=== PATIENT | male | born 1955 | race Caucasian/White ===

== ENCOUNTER → 2016-09-26 | Outpatient (CLI) | payer MEDICARE ==
[~2016-09-26] MED LIST: ALDACTONE25 MG PO; AMOXICILLIN500 MG PO; AMOXIL500 MG PO; ASPIRIN DELAYE325 MG PO; ASPIRIN325 MG PO; AUGMENTIN 875 M1 TAB PO; AVPAK AZITHROM250 M1 PO; B-COMPLEX-501 CAP PO; BENICAR20 MG PO; BENICAR40 MG PO; BENICAR5 MG PO; CIPRODEX 0.3%-7.5 ML OT; CIPROFLOXACIN500 MG PO; CLARITIN10 MG PO; CRANBERRY1 CAP PO; DARVOCET N 1001 TAB PO; DELTASONE10 MG PO; FIORICET 325 MG1 TAB PO; HUMALOG100 U/ML SC; HYDR25T PO; HYDROCHLOROTH12.5 M1 PO; HYDROCHLOROTHIA25 MG PO; LASIX 40MG40 MG/4 ML IV; LASIX40 MG PO; LEVOFLOXACIN500 MG PO; MEDROL DOSEPAK4 MG PO; MOTRIN IB200 MG PO; MOTRIN800 MG PO; NEURONTIN600 MG PO; NORCO 325 MG-7.1 TAB PO; NORVASC5 MG PO; NOVOLIN R100 U/ML SC; NOVOLOG 70/30 M10 ML SC; NOVOLOG MIX 70/33 ML SC; OSCAL/D,OYSTER250 MG PO; PERCOCET 325 MG1 TA2 PO; PERCOCET 325 MG1 TA5 PO; PHENERGAN W/DM120 ML PO; POLYTRIM 1000010 ML OPH; PRAVACHOL40 MG PO; PREDNICOT10 MG PO; PROAIR HFA0.09 MG/AC INH; PYRIDIUM200 MG PO; ROBITUSSIN AC 110 ML PO; TAMIFLU 75MG CA75 MG PO; TORADOL IV; TRIGLIDE160 MG PO; VIBRAMYCIN100 MG PO; VICO10300 PO; VICO75300 PO; VITAMIN D50000 I1 PO; VITAMIN D50000 I3 PO; VOLTAREN 0.1%2.5 ML OPH; XANAX XR1 MG PO; XANAX0.5 MG PO; XANAX1 MG PO; ZANTAC150 MG PO; ZOFRAN4 MG PO; Zaroxolyn,Diul2.5 MG PO
== END | disposition home or self-care (01) ==
LOC: RAD 10:40
DX: M47.897 Other spondylosis, lumbosacral region (principal); M47.896 Other spondylosis, lumbar region; M25.78 Osteophyte, vertebrae; M48.06 Spinal stenosis, lumbar region; M48.07 Spinal stenosis, lumbosacral region

== ENCOUNTER → 2016-10-10 | Outpatient (CLI) | payer MEDICARE ==
[2016-10-10 06:36] LABS: HEMATOCRIT 37.5 % (42.0-52.0); HEMOGLOBIN 12.3 g/dl (14.0-18.0); MEAN CELL VOLUME 84.3 fl (80.0-94.0); MEAN CORPUSCULAR HGB 27.6 pg (27.0-31.0); MEAN CORPUSCULAR HGB CONC 32.8 g/dl (33.0-37.0); MEAN PLATELET VOLUME 12.4 fl (9.6-12.3); PLATELET COUNT AUTOMATED 366 10*3/uL (130-400); RED BLOOD COUNT 4.45 10*6/uL (4.50-5.90); RED CELL DISTRI WIDTH 15.8 % (0-14.5)
[2016-10-10 07:18] LABS: BASOPHIL # 0.2 10*3/uL (0-0.1); BASOPHILS 1 % (0-1); EOSINOPHILS 6 % (1-4); LYMPHOCYTE # 2.6 10*3/uL (1.3-4.4); MONOCYTE # 1.8 10*3/uL (0.1-1.0); NEUTROPHIL # 10.6 10*3/uL (2.3-7.9); NEUTROPHILS 66 % (47-73); TOTAL CELLS COUNTED 100 #CELLS
[2016-10-10 07:19] LABS: ACANTHOCYTES FEW; SCHISTOCYTES FEW; SPHEROCYTES FEW
[2016-10-10 07:20] LABS: PLATELET SUFFICIENCY NORMAL (NORMAL)
== END | disposition home or self-care (01) ==
LOC: LAB 05:52
PROVIDERS: Nurse Practitioner Gerontology
DX: D72.829 Elevated white blood cell count, unspecified (principal); R79.89 Other specified abnormal findings of blood chemistry

== ENCOUNTER 2016-11-27 13:14 | Emergency (ER) | payer MEDICARE ==
[~2016-11-27] VITALS: Wt 108.9 kg
[2016-11-27 14:08] LABS: HEMATOCRIT 27.9 % (42.0-52.0); HEMOGLOBIN 8.8 g/dl (14.0-18.0); MEAN CELL VOLUME 86.4 fl (80.0-94.0); MEAN CORPUSCULAR HGB 27.2 pg (27.0-31.0); MEAN CORPUSCULAR HGB CONC 31.5 g/dl (33.0-37.0); MEAN PLATELET VOLUME 12.3 fl (9.6-12.3); PLATELET COUNT AUTOMATED 298 10*3/uL (130-400); RED BLOOD COUNT 3.23 10*6/uL (4.50-5.90); WHITE BLOOD COUNT 21.2 10*3/uL (4.8-10.8)
[2016-11-27 14:23] LABS: ACT PARTIAL THROMBO TIME 33.8 SECONDS (20.8-31.5)
[2016-11-27 14:24] LABS: ALBUMIN 2.3 gm/dl (3.1-4.5); CREATININE 2.37 mg/dL (0.70-1.30); MAGNESIUM 2.2 mg/dL (1.5-2.1); POTASSIUM 5.1 mmol/L (3.5-5.1)
[2016-11-27 14:30] LABS: TOTAL CELLS COUNTED 100 #CELLS
[2016-11-27 14:31] LABS: BURR CELLS MODERATE; PLATELET SUFFICIENCY NORMAL (NORMAL); POLYCHROMASIA SLIGHT; SCHISTOCYTES FEW
[2016-11-27 15:38] VITALS: BP 101/53
== END 2016-11-27 16:26 | disposition short-term general hospital (02) ==
LOC: ED 13:14
PROVIDERS: Nurse Practitioner Family
DX: I21.4 Non-ST elevation (NSTEMI) myocardial infarction (principal); N17.9 Acute kidney failure, unspecified; I50.9 Heart failure, unspecified; F17.200 Nicotine dependence, unspecified, uncomplicated; Z91.012 Allergy to eggs

== ENCOUNTER 2016-12-07 09:45 | Emergency (ER) | payer MEDICARE ==
[~2016-12-07] VITALS: Ht 182.8 cm; Wt 113.4 kg
[2016-12-07 10:15] LABS: HEMATOCRIT 20.2 % (42.0-52.0); HEMOGLOBIN 6.4 g/dl (14.0-18.0); MEAN CELL VOLUME 87.4 fl (80.0-94.0); MEAN CORPUSCULAR HGB 27.7 pg (27.0-31.0); MEAN CORPUSCULAR HGB CONC 31.7 g/dl (33.0-37.0); MEAN PLATELET VOLUME 11.6 fl (9.6-12.3); NUCLEATED RED BLOOD CELL 0.1 10*3/uL (0.0-0.0); NUCLEATED RED BLOOD CELL 0.3 % (0.0-0.0); PLATELET COUNT AUTOMATED 364 10*3/uL (130-400); RED BLOOD COUNT 2.31 10*6/uL (4.50-5.90); RED CELL DISTRI WIDTH 14.1 % (0-14.5); WHITE BLOOD COUNT 22.1 10*3/uL (4.8-10.8)
[2016-12-07 10:24] LABS: ACT PARTIAL THROMBO TIME 24.5 SECONDS (20.8-31.5); INTERNATIONAL NORM RATIO 1.1 (2.0-3.5)
[2016-12-07 10:32] LABS: CREATININE 2.03 mg/dL (0.70-1.30); MAGNESIUM 2.1 mg/dL (1.5-2.1); POTASSIUM 4.7 mmol/L (3.5-5.1); TOTAL PROTEIN 5.2 gm/dL (6.4-8.2)
[2016-12-07 10:35] LABS: BASOPHILS 2 % (0-1); TOTAL CELLS COUNTED 100 #CELLS
[2016-12-07 10:36] LABS: PLATELET SUFFICIENCY NORMAL (NORMAL); POLYCHROMASIA SLIGHT
[2016-12-07 10:49] LABS: TROPONIN I 0.584 ng/ml (<0.045)
[2016-12-07 11:57] VITALS: BP 122/60
== END 2016-12-07 12:28 | disposition short-term general hospital (02) ==
LOC: ED 09:45
PROVIDERS: Nurse Practitioner Family
DX: K92.2 Gastrointestinal hemorrhage, unspecified (principal); D62 Acute posthemorrhagic anemia; Z91.012 Allergy to eggs; Z79.899 Other long term (current) drug therapy

== ENCOUNTER 2016-12-18 10:59 | Emergency (ER) | payer MEDICARE ==
[~2016-12-18] VITALS: Ht 177 cm; Wt 113.4 kg
[2016-12-18 11:22] LABS: HEMATOCRIT 27.9 % (42.0-52.0); HEMOGLOBIN 8.7 g/dl (14.0-18.0); MEAN CELL VOLUME 88.9 fl (80.0-94.0); MEAN CORPUSCULAR HGB 27.7 pg (27.0-31.0); MEAN CORPUSCULAR HGB CONC 31.2 g/dl (33.0-37.0); MEAN PLATELET VOLUME 11.7 fl (9.6-12.3); NUCLEATED RED BLOOD CELL 0.2 % (0.0-0.0); PLATELET COUNT AUTOMATED 458 10*3/uL (130-400); RED BLOOD COUNT 3.14 10*6/uL (4.50-5.90); RED CELL DISTRI WIDTH 16.1 % (0-14.5); WHITE BLOOD COUNT 15.6 10*3/uL (4.8-10.8)
[2016-12-18 11:39] LABS: ALBUMIN 2.4 gm/dl (3.1-4.5); CREATININE 1.57 mg/dL (0.70-1.30); MAGNESIUM 1.7 mg/dL (1.5-2.1); POTASSIUM 4.2 mmol/L (3.5-5.1); TOTAL PROTEIN 6.3 gm/dL (6.4-8.2)
[2016-12-18 11:42] LABS: POLYCHROMASIA SLIGHT; TOTAL CELLS COUNTED 100 #CELLS; TROPONIN I 0.217 ng/ml (<0.045)
[2016-12-18 11:43] LABS: ACANTHOCYTES FEW; HOWELL-JOLLY BODIES FEW; PLATELET SUFFICIENCY HIGH (NORMAL); SPHEROCYTES MODERATE
[2016-12-18 12:04] LABS: ACT PARTIAL THROMBO TIME 26.9 SECONDS (20.8-31.5)
[2016-12-18 17:45] VITALS: BP 128/69
== END 2016-12-18 20:15 | disposition short-term general hospital (02) ==
LOC: ED 10:59
PROVIDERS: Emergency Medicine
DX: I50.9 Heart failure, unspecified (principal); R79.89 Other specified abnormal findings of blood chemistry; R91.8 Other nonspecific abnormal finding of lung field; E11.9 Type 2 diabetes mellitus without complications; I25.2 Old myocardial infarction; F17.200 Nicotine dependence, unspecified, uncomplicated; Z91.012 Allergy to eggs; Z79.899 Other long term (current) drug therapy; Z79.4 Long term (current) use of insulin

== ENCOUNTER 2017-01-10 19:34 | Inpatient (IN) | payer MEDICARE ==
[~2017-01-10] VITALS: Ht 175.3 cm; Wt 118.2 kg
--- NOTE | ~2017-01-10 | PROC NOTE ---
[place], [place] PROCEDURE NOTE NAME: SERAFIN FABIAN UNIT #: [id number] ROOM: 428 DOCTOR: ELLE PORTILLO BIRTHDATE: [birth year] DOS: 01/12/2017 PRIMARY PHYSICIAN: Dr. Mendez RADIOLOGIST: Dr. Watts ROOM NUMBER: [id number]. HISTORY OF PRESENT ILLNESS: The patient is a 61-year-old male who presented to [facility] with shortness of breath. He reported 2 myocardial infarctions within the past month. Chest x-ray revealed small bilateral pleural effusions and bilateral lower lobe infiltrates. A repeat chest x-ray demonstrated worsening right lower lobe pneumonia. MBS order was placed given concern for aspiration as a cause. The patient is currently on a regular diet with thin liquids. PREVIOUS MEDICAL HISTORY: The patient's medical history includes acute respiratory failure, CHF, CKD, HTN, GERD, bipolar disorder, diabetes mellitus type 2, tobacco abuse, HLD, CAD, BPH and anxiety. He has previously unknown to this ENTRY LEVEL JAVA DEVELOPER service. GENERAL COMMENTS: The patient remained awake, alert and cooperative throughout the exam. He reported recent incident of waking up due to a burning sensation in his lungs, which led to emesis. He attributed the burning sensation to reflux. The patient currently takes reflux medications and is aware of general reflux precautions. He denied history of dysphagia and coughing/choking during p.o. ORAL MECHANISM EXAM: Symmetry, strength, coordination, range of motion and accuracy of movements of upper and lower face, lips, jaw and palate were within functional limits. Mild deviation of the tongue to the left noted upon protrusion. The patient is edentulous and does not wear dentures. Volitional cough was adequate for sharpness. MOTOR SPEECH EXAM: Conversational speech was classified by adequate respiration for sentence length utterances. Normal phonatory quality, resonance and prosody and precise articulation. Speech comprehension ability was 100% in a quiet environment. ORAL PHASE: Adequate bolus acceptance with no anterior loss. AP bolus transit was timely. Mastication was mildly prolonged, but complete. Piecemeal deglutition noted with solids. No appreciable oral residue. PHARYNGEAL PHASE: Initiation of the swallow response was generally timely, although early bolus entry into the pharynx noted with solids. HLE was adequate in both superior and anterior planes with subsequent complete epiglottic retroflexion. No penetration or aspiration was observed with any consistency. Base of tongue to posterior pharyngeal wall contact was adequate with no appreciable pharyngeal residue. [place], [place] PROCEDURE NOTE NAME: SERAFIN FABIAN UNIT #: [id number] ROOM: [facility] DOCTOR: ELLE PORTILLO BIRTHDATE: [birth year] UES: Unremarkable. IMPRESSION: The patient presents with normal oropharyngeal swallowing function. No aspiration or penetration was observed with any consistency. He remains appropriate for a regular diet with thin liquids. The patient's only aspiration risk factor is the diagnosis of gastroesophageal reflux disease. Adherence to precautions below is recommended to reduce this risk. RECOMMENDATIONS: 1. Continue current diet, regular food with thin liquids. 2. Standard aspiration precautions, fully upright, awake and alert for all p.o., small bites/sips, oral care at least b.i.d. 3. Reflux management. Findings and recommendations were reviewed with the patient who expressed understanding. PLAN OF CARE: No further ENTRY LEVEL JAVA DEVELOPER followup is indicated at this time. Please reconsult if additional concerns for aspiration/dysphagia arise. Thank you for consulting. Please contact the Speech Language Pathology Department at [phone] with any questions/concerns. Elle Guillermo CM:PROCNOTE:PROCEDURE NOTE [id number] ELLE PORTILLO
[2017-01-10 19:45] VITALS: BP 156/58
[2017-01-10 20:09] LABS: HEMATOCRIT 25.2 % (42.0-52.0); HEMOGLOBIN 7.9 g/dl (14.0-18.0); MEAN CELL VOLUME 87.5 fl (80.0-94.0); MEAN CORPUSCULAR HGB 27.4 pg (27.0-31.0); MEAN CORPUSCULAR HGB CONC 31.3 g/dl (33.0-37.0); MEAN PLATELET VOLUME 12.1 fl (9.6-12.3); NUCLEATED RED BLOOD CELL 0.1 10*3/uL (0.0-0.0); NUCLEATED RED BLOOD CELL 0.4 % (0.0-0.0); PLATELET COUNT AUTOMATED 448 10*3/uL (130-400); RED BLOOD COUNT 2.88 10*6/uL (4.50-5.90); RED CELL DISTRI WIDTH 16.2 % (0-14.5); WHITE BLOOD COUNT 15.6 10*3/uL (4.8-10.8)
[2017-01-10 20:20] LABS: ACT PARTIAL THROMBO TIME 25.6 SECONDS (20.8-31.5)
[2017-01-10 20:28] LABS: ALBUMIN 2.4 gm/dl (3.1-4.5); CREATININE 1.84 mg/dL (0.70-1.30); POTASSIUM 4.6 mmol/L (3.5-5.1); TOTAL PROTEIN 6.1 gm/dL (6.4-8.2)
[2017-01-10 20:30] LABS: PLATELET SUFFICIENCY HIGH (NORMAL); POLYCHROMASIA SLIGHT; TOTAL CELLS COUNTED 100 #CELLS
[2017-01-10 20:31] LABS: MICROCYTOSIS SLIGHT
[2017-01-10 20:34] LABS: BURR CELLS FEW
[2017-01-10 20:36] LABS: TROPONIN I 0.338 ng/ml (<0.045)
[2017-01-10 21:00] VITALS: BP 144/83
--- NOTE | 2017-01-10 21:09 | NUR ---
PATIENT RESTING IN FOWLERS POSITION C/O BACK PAIN WHICH PT STATES IS CHRONIC, ABD WITH NORMOACTIVE BOWEL SOUNDS, COLOSTOMY BAG CLEAN AND IN PLACE WITH GOOD SEAL, NO OTHER NOTED OPEN AREAS OR WOUNDS, PT REQUESTS TO LEAVE PANTS ON, DENIES ANY WOUNDS IN AREAS NOT VISABLE
[2017-01-10 21:33] VITALS: BP 135/70
[2017-01-10 21:50] VITALS: BP 145/68; BP 148/68
--- NOTE | 2017-01-10 21:55 | NUR ---
DR. MASON AT BEDSIDE AND AWARE OF POX 89% AND O2 INITIATED AT 2LPM VIA NC INCREASING POX TO 93% MEDICATION RECONCILIATION UPDATED WITH MEDICATION PILL BOTTLES FROM HOME. PATIENT STATES UNSURE OF HOME MEDS AND FOLLOW UP INDICATED TO UPDATE HOME MEDS WITH PATIENT'S PHARMACY TOMORROW. FEDE ARREOLA RN
[2017-01-10] MEDS ORDERED: IMDUR SA30 MG PO (22:14)
[2017-01-10] MEDS ORDERED: RANEXA500 M1 PO (22:15)
[2017-01-10] MEDS ORDERED: TAMSULOSIN HCL0.4 MG PO (22:15)
[2017-01-10] MEDS ORDERED: TRAZODONE50 MG PO (22:16)
[2017-01-10] MEDS ORDERED: NITROGLYCERIN0.4 MG SL (22:17)
[2017-01-10] MEDS ORDERED: BUMETANIDE1 MG PO (22:18)
[2017-01-10] MEDS ORDERED: ASPIRIN CHEWABL81 MG PO (22:18)
[2017-01-10] MEDS ORDERED: NEURONTIN600 MG PO (22:19)
[2017-01-10] MEDS ORDERED: EQ STOOL SOFTE1 EACH PO (22:19)
[2017-01-10] MEDS ORDERED: TOPROL XL50 M1 PO (22:20)
[2017-01-10] MEDS ORDERED: LIPITOR40 MG PO (22:20)
[2017-01-10] MEDS ORDERED: XANAX0.5 MG PO (22:21)
[2017-01-10] MEDS ORDERED: LANTUS SOL100 UNIT/1 SQ (22:23)
[2017-01-10] MEDS ORDERED: COLACE100 MG PO (22:28)
[2017-01-10] MEDS ORDERED: IRON325 M1 PO (22:29)
--- NOTE | 2017-01-10 23:54 | NUR ---
PRN NORCO GIVEN PER PT. REQUEST FOR LOWER BACK AND NECK PAIN RATING PAIN A 10/19. WILL MONITOR EFFECT.
[2017-01-11] VITALS: BP 130/63
--- NOTE | 2017-01-11 00:20 | NUR ---
PRN NORCO SEEMS TO BE EFFECTIVE. PT. NOT VERBALIZING ANY C/O PAIN AT THIS TIME. RESPIRATIONS ARE EASY AND REGULAR WITH NASAL CANNULA ATTACHED AND DELIVERING 2LPM. WILL CONTINUE TO MONITOR PT.
--- NOTE | 2017-01-11 00:39 | NUR ---
SPOKE WITH DR. MASON IN REGARDS TO CRITICAL TROPONIN LEVEL OF 0.290, NO NEW ORDERS.
[2017-01-11 03:08] LABS: HEMATOCRIT 26.4 % (42.0-52.0); HEMOGLOBIN 8.2 g/dl (14.0-18.0); MEAN CELL VOLUME 88.3 fl (80.0-94.0); MEAN CORPUSCULAR HGB 27.4 pg (27.0-31.0); MEAN CORPUSCULAR HGB CONC 31.1 g/dl (33.0-37.0); MEAN PLATELET VOLUME 12.1 fl (9.6-12.3); NUCLEATED RED BLOOD CELL 0.1 10*3/uL (0.0-0.0); NUCLEATED RED BLOOD CELL 0.4 % (0.0-0.0); PLATELET COUNT AUTOMATED 443 10*3/uL (130-400); RED BLOOD COUNT 2.99 10*6/uL (4.50-5.90); RED CELL DISTRI WIDTH 16.2 % (0-14.5); WHITE BLOOD COUNT 18.2 10*3/uL (4.8-10.8)
[2017-01-11 03:19] LABS: CREATININE 1.54 mg/dL (0.70-1.30); POTASSIUM 4.7 mmol/L (3.5-5.1)
[2017-01-11 03:24] LABS: PHOSPHOROUS 2.8 mg/dL (2.5-4.9)
[2017-01-11 03:30] LABS: THYROID STIM HORMONE (HS) 1.32 uIU/ml (0.358-4.75)
--- NOTE | 2017-01-11 03:30 | NUR ---
DR. MASON INFORMED OF CRITICAL TROPONIN LEVEL OF 0.286.
[2017-01-11 03:32] LABS: ATYPICAL LYMPHS 1 % (0-0); BASOPHILS 2 % (0-1); PLATELET SUFFICIENCY HIGH (NORMAL); TOTAL CELLS COUNTED 100 #CELLS
[2017-01-11 03:33] LABS: POLYCHROMASIA SLIGHT
--- NOTE | 2017-01-11 06:19 | NUR ---
PRN NORCO GIVEN PER PT. REQUEST FOR C/O LOWER BACK AND NECK PAIN. PT. RATES PAIN A 09/18. WILL MONITOR EFFECT.
--- NOTE | 2017-01-11 06:43 | NUR ---
IV IN PT. RT HAND INFILTRATED. 22G IN PT.'S LT. HAND.
--- NOTE | 2017-01-11 06:46 | NUR ---
DR. CONTRERAS SERVICE CONTACTED FOR DR. CASTILLO, AWAITING CALL BACK.
--- NOTE | 2017-01-11 07:00 | NUR ---
DR. PRICE CALLED BACK IN REGARDS TO JONATHAN CONSULT, HE STATED THAT DR. CASTILLO WOULD BE IN TO SEE PT. TODAY, NO NEW ORDERS.
[2017-01-11 07:16] LABS: VITAMIN D, 25-HYDROXY 19.9 ng/mL (30-100)
[2017-01-11 08:00] VITALS: BP 150/76
--- NOTE | 2017-01-11 09:40 | NUR ---
ECHO BEING DONE AT THIS TIME.
--- NOTE | 2017-01-11 10:00 | NUR ---
Donor Processor in to talk to patient. Patient states lives at home with . There are few steps in the home. Physician: shelia gaspar Pharmacy: [facility] Home health services: none Patient's level of ADLs: INDEPENDENT Patient has working utilities: all working DME: none Follow-up physician's appointment after d/c: will be made by hospitalist nurse director upon discharge Does patient want to access PORTAL?: no Discharge plan discussed with patient, patient lives at home and states he will be returning home when able, denies any home needs. KEKE WASHBURN
--- NOTE | 2017-01-11 11:14 | NUR ---
CARENSERAFIN Vasquez [id number] Please refer to the physician's history and physical for past medical history, comorbid conditions, and allergies. Diagnosis: CHF EXACERBATION SHORTNESS OF BREATH ANEMIA Meliton Score: 21,LOW OR NO RISK WOUND DESCRIPTIONS: Location of the wound: middle abdomen Type of wound: surgical Thickness: Partial Size: 0.5cm x 0.3cm x 0.1cm Tunneling: none Undermining: none Sinus Tract: none Presence of Exudate: none Amount: None Color: Red Odor: None Periwound Skin Appearance: Normal Wound edges: approximated Pain (associated with wound): none at time of assessment How does patient state this happened? pt stated had surgery in 2003 and it the area drains about 1 a year and doesnt want to follow up with anyone because his surgeon stated that there is nothing that they can do to close the wounds and fistulas. 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 pt stated had surgery in 2003 and it the area drains about 1 a year and doesnt want to follow up with anyone because his surgeon stated that there is nothing that they can do to close the wounds and fistulas. Surface the patient is resting on: Isoflex SKIN PREVENTION RECOMMENDATION: 1. Pressure redistribution support surface as appropriate 2. Elevate heels 3. Remove boots/TEDS every shift and reapply 4. Head of bed 30 degrees as tolerated 5. Assess nutrition and hydration 6. Manage moisture 7. Avoid the use of containment devices while in bed 8. Use absorptive products on surfaces limit layers of linens on bed 9. Turn and reposition every 1-2 hours in bed and every 1 hour in chair as tolerated 10. Weight shifts every 15 minutes while up in chair 11. Offloading with pillows or device to keep heels elevated off bed 12. Monitor skin at least every shift 13. Inspect under medical devices twice a day WOUND TREATMENT RECOMMENDATIONS: Patient wants area left open to air and doesnt want to follow up with anyone. He stated he has been dealing with this since 2003.
[2017-01-11 12:00] VITALS: BP 133/72
--- NOTE | 2017-01-11 12:09 | NUR ---
PT SITTING UP AT BEDSIDE, DENIES ANY SOB AT THIS TIME, O2 ON BED, STATES HE DOESN'T FEEL SOB OR THAT HE NEEDS IT. EXPLAINED TO PT IF HE BECOMES SOB TO RESUME WEARING THE OXYGEN, PT VERBALIZED UNDERSTANDING. DENIES ANY COMPLAINTS AT THIS TIME. ENCOURAGED PT TO SIT UP IN RECLINER TO ELEVATE LEGS TO HELP DECREASE SWELLING, STATES HE MIGHT GET IN CHAIR LATER.
--- NOTE | 2017-01-11 14:36 | NUR ---
MEDICATED WITH NORCO PER PRN ORDER FOR COMPLAINTS OF LOWER BACK PAIN, RATE PAIN 09/18. WILL MONITOR FOR EFFECTIVENESS.
[2017-01-11 16:00] VITALS: BP 108/54
[2017-01-11 20:00] VITALS: BP 115/69
[2017-01-12] VITALS: BP 110/53
[2017-01-12 05:45] LABS: CREATININE 1.6 mg/dL (0.70-1.30); PHOSPHOROUS 3.3 mg/dL (2.5-4.9); POTASSIUM 4.4 mmol/L (3.5-5.1)
[2017-01-12 06:19] LABS: BASO % 0.2 % (0.0-1.0); HEMATOCRIT 26.8 % (42.0-52.0); HEMOGLOBIN 8.3 g/dl (14.0-18.0); LYMPH # 1.4 10*3/uL (1.3-4.4); LYMPH % 9.2 % (27.0-41.0); MEAN CELL VOLUME 87.6 fl (80.0-94.0); MEAN CORPUSCULAR HGB 27.1 pg (27.0-31.0); MEAN PLATELET VOLUME 12.6 fl (9.6-12.3); MONO # 0.1 10*3/uL (0.1-1.0); MONO % 0.6 % (3.0-9.0); NEUT # 13.3 10*3/uL (2.3-7.9); NEUT % 89.2 % (47.0-73.0); NUCLEATED RED BLOOD CELL 0.3 % (0.0-0.0); PLATELET COUNT AUTOMATED 455 10*3/uL (130-400); RED BLOOD COUNT 3.06 10*6/uL (4.50-5.90); RED CELL DISTRI WIDTH 16.2 % (0-14.5); WHITE BLOOD COUNT 14.9 10*3/uL (4.8-10.8)
--- NOTE | 2017-01-12 08:56 | NUR ---
PT STATING THAT HE IS GOING TO HAVE TO LEAVE THE HOSPITAL TODAY BECAUSE OF APPOINTMENTS THAT HE CAN NOT MISS. I EXPLAINED THE IMPORTANCE OF STAYING TO HAVE COMPLETE TREATMENT BUT PT STATES HE HAS ALREADY MISSED THESE APPOINTMENTS TWICE AND HE CAN NOT MISS THEM AGAIN. PT STATES THAT HE MADE THE DR'S AWARE OF THIS YESTERDAY. HE IS AGREEABLE TO HAVE ANY TESTS AND TREATMENTS DONE UNTIL HIS RIDE GETS HER LATER THIS MORNING.
--- NOTE | 2017-01-12 09:23 | NUR ---
case management visits with patient, patient states he will be going home when able and denies any home needs
--- NOTE | 2017-01-12 09:53 | NUR ---
SPEECH PATHOLOGY CONSULT RECEIVED AND APPRECIATED TO INSTRUMENTALLY EVALUATE MR. FABIAN'S OROPHARYNGEAL SWALLOWING FUNCTION. PT PRESENTS WITH CHF EXACERBATION AND HCAP C/B B/L LOWER LOBE INFILTRATES. PT REPORTED RECENT EPISODE OF POSSIBLE ASPIRATION OF REFLUX WHILE SLEEPING AND SUBSEQUENT EMESIS. HE DENIED ANY INSTANCES OF COUGHING/CHOKING DURING PO. PLEASE REFER TO DICTATED MBS REPORT FOR FULL DETAILS. IN BRIEF, MR. FABIAN TRIALED THE FOLLOWING BARIUM-IMPREGNATED CONSISTENCIES: THIN LIQUIDS VIA CUP, TSPS OF PUREE, AND BITE OF COARSE SOLIDS. MASTICATION OF COARSE SOLIDS WAS MILDLY PROLONGED BUT COMPLETE. MILD-MODERATE ORAL RESIDUE NOTED BUT CLEARED WITH ADDITIONAL SWALLOWS. NO PENETRATION OR ASPIRATION WAS OBSERVED WITH ANY CONSISTENCY. IMPRESSIONS: MR. FABIAN PRESENTS WITH NORMAL OROHPHARYNGEAL SWALLOWING FUNCTION. HE REMAINS APPROPRIATE FOR A REGULAR DIET WITH THIN LIQUIDS. PLEASE REFER TO THE DICTATED [facility] [place]PORT FOR FULL DETAILS. MR. VILLAVICENCIO'S ONLY ASPIRATION RISK FACTOR IS HIS DX OF GERD; RECOMMEND ADHERENCE TO PRECAUTIONS BELOW TO REDUCE THIS RISK. RECOMMENDATIONS: 1. CONTINUE CURRENT DIET, REGULAR FOODS WITH THIN LIQUIDS 2. STANDARD ASPIRATION PRECAUTIONS: FULLY, UPRIGHT, AWAKE, AND ALERT FOR ALL PO; SMALL BITES/SIPS; ORAL CARE AT LEAST BID 3. REFLUX MANAGEMENT POC: NO FURTHER EXECUTIVE RECEPTIONIST F/U IS INDICATED AT THIS TIME. PLEASE RE-CONSULT IF ADDITIONAL CONCERNS FOR DYSPHAGIA/ASPIRATION ARISE. THANK YOU FOR CONSULTING. TATE ANDRES-EXECUTIVE RECEPTIONIST
--- NOTE | 2017-01-12 10:00 | NUR ---
DR MANSFIELD MADE AWARE OF PT LEAVING AM. PT STATED HE IS GOING TO CALL HIS FAMILY TODAY SO THAT HE CAN GET THE PRESCRIPTIONS THAT HE NEEDS FOR PNEUMONIA.
--- NOTE | 2017-01-12 10:01 | NUR ---
Patient signed out AMA. Patient encouraged to stay and advised of possible consequences of premature discharge. Physician DR MANSFIELD and supervisor roller shop EDIN STEIN notified. Patient instructed what to do regarding care post-departure from the hospital; emergency phone numbers provided. Patent was accompanied by FRIEND. CHRISTEL CAMPOS
--- NOTE | 2017-01-12 10:02 | NUR ---
PT DID NOT WANT ANY PICS TAKEN OR WOUND MEASUREMENTS DONE BEFORE LEAVING AMA.
--- NOTE | 2017-01-12 10:35 | NUR ---
PT LEFT AMA WITH NEPHEW.
[2017-01-13 15:06] LABS: LEGIONELLA URINARY ANTIGEN Negative (Negative)
== END 2017-01-12 10:35 | disposition left against medical advice (07) | DRG 871 ==
LOC: ED 19:34 → 4E 21:02
PROVIDERS: Internal Medicine; Physician Assistant; ADMIT Internal Medicine
PROC: BD1BYZZ Fluoroscopy of Mouth/Oropharynx using Other Contrast (ICD-10-PCS; principal; 2017-01-12)
DX: A41.9 Sepsis, unspecified organism (principal); J18.9 Pneumonia, unspecified organism; J96.01 Acute respiratory failure with hypoxia; E43 Unspecified severe protein-calorie malnutrition; E11.42 Type 2 diabetes mellitus with diabetic polyneuropathy; E11.22 Type 2 diabetes mellitus with diabetic chronic kidney disease; I13.0 Hypertensive heart and chronic kidney disease with heart failure and stage 1 through stage 4 chronic kidney disease, or unspecified chronic kidney disease; F31.30 Bipolar disorder, current episode depressed, mild or moderate severity, unspecified; I50.9 Heart failure, unspecified; K21.9 Gastro-esophageal reflux disease without esophagitis; N18.3 Chronic kidney disease, stage 3 (moderate); F41.9 Anxiety disorder, unspecified; Y95 Nosocomial condition; Z53.21 Procedure and treatment not carried out due to patient leaving prior to being seen by health care provider; I25.10 Atherosclerotic heart disease of native coronary artery without angina pectoris; E78.5 Hyperlipidemia, unspecified; E55.9 Vitamin D deficiency, unspecified; E61.1 Iron deficiency; N40.0 Benign prostatic hyperplasia without lower urinary tract symptoms; D47.3 Essential (hemorrhagic) thrombocythemia; E11.65 Type 2 diabetes mellitus with hyperglycemia; Z91.012 Allergy to eggs; Z82.49 Family history of ischemic heart disease and other diseases of the circulatory system; Z72.0 Tobacco use; Z79.4 Long term (current) use of insulin; Z83.3 Family history of diabetes mellitus; Z82.3 Family history of stroke; Z79.82 Long term (current) use of aspirin; Z68.36 Body mass index [BMI] 36.0-36.9, adult; I25.2 Old myocardial infarction; Z79.899 Other long term (current) drug therapy

== ENCOUNTER 2017-01-28 23:05 | Inpatient (IN) | payer MEDICARE ==
[~2017-01-28] VITALS: Ht 175.2 cm; Wt 117.9 kg
--- NOTE | ~2017-01-28 | CON ---
[place], [place] REPORT OF CONSULTATION NAME: SERAFIN FABIAN UNIT #: [id number] ROOM: [facility] DOCTOR: BRENDA SCHWARZ MD,TIESHA BIRTHDATE: [birth year] DOS: 01/29/2017 SHORT NOTE CONSULTATION The patient has been asked for consultation to be seen, but discharged prior to my assessment. TIESHA GUTIERREZ MD CM:CONSTR:REPORT OF CONSULTATION 0928 01/30/17 1003 interface
[~2017-01-28 23:05] MED LIST changes: +ASPIRIN CHEWABL81 MG PO; +BUMETANIDE1 MG PO; +COLACE100 MG PO; +EQ STOOL SOFTE1 EACH PO; +IMDUR SA30 MG PO; +IRON325 M1 PO; +LANTUS SOL100 UNIT/1 SQ; +LIPITOR40 MG PO; +NITROGLYCERIN0.4 MG SL; +RANEXA500 M1 PO; +TAMSULOSIN HCL0.4 MG PO; +TOPROL XL50 M1 PO; +TRAZODONE50 MG PO
[2017-01-28 23:23] VITALS: BP 109/81
[2017-01-29 00:09] LABS: HEMATOCRIT 27.9 % (42.0-52.0); HEMOGLOBIN 8.9 g/dl (14.0-18.0); MEAN CELL VOLUME 85.6 fl (80.0-94.0); MEAN CORPUSCULAR HGB 27.3 pg (27.0-31.0); MEAN CORPUSCULAR HGB CONC 31.9 g/dl (33.0-37.0); MEAN PLATELET VOLUME 11.9 fl (9.6-12.3); NUCLEATED RED BLOOD CELL 0.1 % (0.0-0.0); PLATELET COUNT AUTOMATED 295 10*3/uL (130-400); RED BLOOD COUNT 3.26 10*6/uL (4.50-5.90); RED CELL DISTRI WIDTH 16.1 % (0-14.5)
[2017-01-29 00:12] LABS: BILIRUBIN NEGATIVE (NEGATIVE); BLOOD NEGATIVE (NEGATIVE); CLARITY CLEAR (CLEAR); COLOR YELLOW (YELLOW); GLUCOSE 3+ (NEGATIVE); KETONE NEGATIVE (NEGATIVE); LEUKO ESTERASE NEGATIVE (NEGATIVE); NITRITE NEGATIVE (NEGATIVE); SPECIFIC GRAVITY 1.015 (1.005-1.030); UROBILINOGEN 0.2 E.U./dl (0.2-1.0)
[2017-01-29 00:19] LABS: BACTERIA 2+
[2017-01-29 00:25] LABS: ALBUMIN 2.3 gm/dl (3.1-4.5); CREATININE 2.02 mg/dL (0.70-1.30); POTASSIUM 4.3 mmol/L (3.5-5.1); TOTAL PROTEIN 6.1 gm/dL (6.4-8.2)
[2017-01-29 00:30] LABS: BURR CELLS FEW; PLATELET SUFFICIENCY NORMAL (NORMAL); TOTAL CELLS COUNTED 100 #CELLS
[2017-01-29 00:31] LABS: POLYCHROMASIA SLIGHT; SCHISTOCYTES FEW; TARGET CELLS FEW
--- NOTE | 2017-01-29 00:33 | NUR ---
LAB CALLED WITH CRITICAL VALUE OF TROPONIN 0.071 AND GLUCOSE 512. NOTIFIED.
[2017-01-29 00:34] LABS: TROPONIN I 0.071 ng/ml (<0.045)
[2017-01-29 01:42] VITALS: BP 140/73
--- NOTE | 2017-01-29 01:58 | NUR ---
A 61, admitted to 5E, under the services of RADHA Curtis DO with a diagnosis of SHORTNESS OF BREATH. Chief complaint is NONPRODUCTIVE COUGH AND SOB 2-3X DAYS. Patient arrived via stretcher from ER. Monitor applied. Initial assessment completed. Vital signs taken and recorded. RADHA CURTIS DO notified of admission to the unit. Orders received. See assessment for past medical history, medications and allergies. Patient and/or family oriented to unit. [facility] visitation policy reviewed. Clothing/patient valuable form completed. DONNA STRICKLAND
--- NOTE | 2017-01-29 02:10 | NUR ---
MED REC REVIEWED WITH PATIENT. ADJUSTED PER PATIENT RECALL, BUT PATIENT UNABLE TO PROVIDE FULL LIST OF MEDICATIONS WITH APPROPRIATE DOSAGES/FREQUENCIES. MED REC WILL NEED TO BE UPDATED TOMORROW MORNING WITH [facility].
--- NOTE | 2017-01-29 02:30 | NUR ---
PHOTOS TAKEN OF 2 ABDOMINAL WOUNDS AT THIS TIME PER POLICY. SHIFT DIRECTOR NOTIFIED.
--- NOTE | 2017-01-29 02:33 | NUR ---
SPOKE TO AT THIS TIME REGARDING ADMISSION ORDERS. NOTIFIED THAT PT IS C/O PAIN IN ABDOMEN/BACK AND HE IS REQUESTING PAIN MEDICATION. ALSO NOTIFIED THAT PATIENT IS A DIABETIC, IS REQUESTING A NICOTROL INHALER, AND HAS TWO NON-HEALING SURGICAL WOUNDS TO ABDOMEN. STATES HE WILL PUT IN NEW ORDERS.
--- NOTE | 2017-01-29 03:33 | NUR ---
PATIENT MEDICATED WITH PO NORCO PER PRN ORDER FOR C/O ABDOMINAL PAIN AND CHRONIC BACK PAIN WHICH HE IS RATING 10/10. WILL MONITOR EFFECTIVENESS. COLOSTOMY BAG ALSO EMPTIED AT THIS TIME. URINAL PROVIDED FOR URINATION. WILL MONITOR PATIENT. CALL LIGHT LEFT IN REACH.
--- NOTE | 2017-01-29 04:42 | NUR ---
EARLIER MEDICATION APPEARS EFFECTIVE. PATIENT ASLEEP IN BED, RESPIRATIONS EASY, NO S/S OF DISTRESS NOTED. ON ROOM AIR. WILL MONITOR. CALL LIGHT LEFT IN REACH.
[2017-01-29 05:56] LABS: CREATININE 1.89 mg/dL (0.70-1.30); POTASSIUM 4.5 mmol/L (3.5-5.1)
[2017-01-29 06:05] LABS: THYROID STIM HORMONE (HS) 0.9 uIU/ml (0.358-4.75)
[2017-01-29 06:22] LABS: HEMATOCRIT 29.4 % (42.0-52.0); MEAN CELL VOLUME 86.2 fl (80.0-94.0); MEAN CORPUSCULAR HGB 26.4 pg (27.0-31.0); MEAN CORPUSCULAR HGB CONC 30.6 g/dl (33.0-37.0); MEAN PLATELET VOLUME 13.7 fl (9.6-12.3); NUCLEATED RED BLOOD CELL 0.1 % (0.0-0.0); PLATELET COUNT AUTOMATED 308 10*3/uL (130-400); RED BLOOD COUNT 3.41 10*6/uL (4.50-5.90); RED CELL DISTRI WIDTH 16.2 % (0-14.5); WHITE BLOOD COUNT 17.8 10*3/uL (4.8-10.8)
--- NOTE | 2017-01-29 06:29 | NUR ---
NOTIFIED OF CRITICAL GLUCOSE 496. 14 UNITS ADMINISTERED PER SLIDING SCALE ORDER. NO OTHER ORDERS RECEIVED AT THIS TIME.
[2017-01-29 06:42] LABS: ACT PARTIAL THROMBO TIME 27.6 SECONDS (20.8-31.5)
[2017-01-29 07:17] LABS: TOTAL CELLS COUNTED 100 #CELLS
[2017-01-29 07:18] LABS: ACANTHOCYTES FEW; BURR CELLS FEW; POLYCHROMASIA SLIGHT; TARGET CELLS FEW
[2017-01-29 07:19] LABS: PLATELET SUFFICIENCY NORMAL (NORMAL); SCHISTOCYTES MODERATE; SPHEROCYTES FEW
[2017-01-29 08:00] VITALS: BP 137/72
--- NOTE | 2017-01-29 08:30 | NUR ---
PT SITTING UP AT SIDE OF BED. RESP-EASY AND REGULAR. C/O LOWER BACK PAIN, RATES PAIN 10 ON PAIN SCALE. MEDICATED WITH NORCO PO PER PRN ORDER, SEE EMAR. CALL LIGHT IN REACH. SEE SHIFT ASSESSMENT.
[2017-01-29 08:51] LABS: VITAMIN D, 25-HYDROXY 22.2 ng/mL (30-100)
--- NOTE | 2017-01-29 10:11 | NUR ---
GORDO FOWLER AWARE MEDS ARE UPDATED.
[2017-01-29] MEDS ORDERED: NEURONTIN600 MG PO (11:10)
[2017-01-29 12:00] VITALS: BP 123/48
--- NOTE | 2017-01-29 12:10 | NUR ---
PT REFLUX-598 PER GORDO GIVE 20UNITS. SEE EMAR. CALL LIGHT IN REACH.
--- NOTE | 2017-01-29 12:29 | NUR ---
PT RESTING IN BED. MEDICATED WITH INSULIN PER ORDER, SEE EMAR. FOR REFLUX SUGAR OF 598. C/O BACK AND ABDOMINAL PAIN, RATES PAIN 11 ON PAIN SCALE 0-10 PER PT. CALL LIGHT IN REACH.
--- NOTE | 2017-01-29 14:21 | NUR ---
PT SITTING UP AT SIDE OF BED. C/O ABDOMINAL AND BACK PAIN, RATES PAIN 10 ON PAIN SCALE 0-10. MEDICATED WITH PERCOCET PO PER PRN ORDER, SEE EMAR. CALL LIGHT IN REACH.
--- NOTE | 2017-01-29 14:37 | NUR ---
CALLED DR. GUTIERREZ AWARE OF CONSULT.
--- NOTE | 2017-01-29 14:37 | NUR ---
CALLED GORDO FOWLER AWARE OF CRITICAL LACTIC ACID
--- NOTE | 2017-01-29 14:47 | NUR ---
PT SITTING UP AT SIDE OF BED. STATES PAIN MEDICATION IS HELPING. RATES PAIN 8 ON PAIN SCALE AT THIS TIME. CALL LIGHT IN REACH.
--- NOTE | 2017-01-29 14:53 | NUR ---
CALLED MADE GORDO FOWLER AWARE OF CRITICAL TROPONIN.
[2017-01-29 16:00] VITALS: BP 135/69
--- NOTE | 2017-01-29 16:00 | NUR ---
RESTING IN BED. NO C/O AT THIS TIME. CALL LIGHT IN REACH. SEE SHIFT ASSESSMENT.
--- NOTE | 2017-01-29 17:38 | NUR ---
CALLED DR. KELLER MADE AWARE OF CRITICAL TROPONIN.
--- NOTE | 2017-01-29 18:00 | NUR ---
IV started right forearm with #22 angiocath after 1 attempts. The IV site was prepped with Chloraprep. Heparin lock attached. IV solution NS infusing at 999 cc/hr. Sterile dressing applied. Patient tolerated precedure well. Procedure performed according to [facility] policy & procedure. YESIKA CARBAJAL
--- NOTE | 2017-01-29 18:05 | NUR ---
DR. GARCIA IN TO SEE PT.
--- NOTE | 2017-01-29 18:07 | NUR ---
PT C/O BACK AND ABDOMINAL PAIN, RATES PAIN 9 ON PAIN SCALE 0-10. MEDICATED WITH NORCO PO PER PRN ORDER, SEE EMAR. CALL LIGHT IN REACH.
--- NOTE | 2017-01-29 18:09 | NUR ---
PT C/O BACK AND ABDOMINAL PAIN, RATES PAIN 9 ON PAIN SCALE 0-10. MEDICATED WITH PERCOCET PO PER PRN ORDER, SEE EMAR. CALL LIGHT IN REACH.
--- NOTE | 2017-01-29 18:20 | NUR ---
PT TRANSPORTED VIA BED TO ICU REPORT GIVEN RN. OXYGEN IN USE. IVF INFUSING.
[2017-01-29 18:25] VITALS: BP 140/77
--- NOTE | 2017-01-29 18:25 | NUR ---
Transfer recieved from 5E via bed.
[2017-01-29 20:00] VITALS: BP 129/63
--- NOTE | 2017-01-29 21:00 | NUR ---
PATIENT [facility] ST[facility] CONDITION [facility] .
--- NOTE | 2017-01-29 21:24 | NUR ---
ROSA ISELA WAS INFORMED OF PATIENTS CRITICAL GLUCOSE AND TROPONIN THAT WERE CALLED HERE.
== END 2017-01-29 21:00 | disposition short-term general hospital (02) | DRG 871 ==
LOC: ED 23:05 → 5E 01-29 01:17 → ICCU 01-29 18:05
PROVIDERS: Emergency Medicine Emergency Medical Services; Internal Medicine; ADMIT Internal Medicine
DX: A41.9 Sepsis, unspecified organism (principal); J18.9 Pneumonia, unspecified organism; I21.4 Non-ST elevation (NSTEMI) myocardial infarction; I13.0 Hypertensive heart and chronic kidney disease with heart failure and stage 1 through stage 4 chronic kidney disease, or unspecified chronic kidney disease; E11.22 Type 2 diabetes mellitus with diabetic chronic kidney disease; I50.9 Heart failure, unspecified; E11.40 Type 2 diabetes mellitus with diabetic neuropathy, unspecified; F17.210 Nicotine dependence, cigarettes, uncomplicated; R65.20 Severe sepsis without septic shock; K21.9 Gastro-esophageal reflux disease without esophagitis; N18.9 Chronic kidney disease, unspecified; F41.9 Anxiety disorder, unspecified; F31.9 Bipolar disorder, unspecified; N40.0 Benign prostatic hyperplasia without lower urinary tract symptoms; I25.10 Atherosclerotic heart disease of native coronary artery without angina pectoris; E78.5 Hyperlipidemia, unspecified; E55.9 Vitamin D deficiency, unspecified; K43.9 Ventral hernia without obstruction or gangrene; Y95 Nosocomial condition; Z71.6 Tobacco abuse counseling; Z79.4 Long term (current) use of insulin; Z87.01 Personal history of pneumonia (recurrent); I25.2 Old myocardial infarction; Z90.81 Acquired absence of spleen; Z90.49 Acquired absence of other specified parts of digestive tract; Z83.3 Family history of diabetes mellitus; Z82.3 Family history of stroke; Z82.49 Family history of ischemic heart disease and other diseases of the circulatory system; Z91.012 Allergy to eggs; Z79.82 Long term (current) use of aspirin; Z79.899 Other long term (current) drug therapy

== ENCOUNTER → 2017-02-19 | Outpatient (CLI) | payer MEDICARE | END | disposition home or self-care (01) | LOC: WOUNDCARE 02-16 07:05 | DX: E11.621 Type 2 diabetes mellitus with foot ulcer (principal); L97.521 Non-pressure chronic ulcer of other part of left foot limited to breakdown of skin; E11.40 Type 2 diabetes mellitus with diabetic neuropathy, unspecified; M19.90 Unspecified osteoarthritis, unspecified site; F17.210 Nicotine dependence, cigarettes, uncomplicated ==

== ENCOUNTER 2017-05-13 09:14 | Emergency (ER) | payer MEDICARE, MEDICAID ==
[~2017-05-13] VITALS: Wt 113.4 kg
[2017-05-13 09:53] LABS: HEMATOCRIT 26.5 % (42.0-52.0); HEMOGLOBIN 7.9 g/dl (14.0-18.0); MEAN CELL VOLUME 79.3 fl (80.0-94.0); MEAN CORPUSCULAR HGB 23.7 pg (27.0-31.0); MEAN CORPUSCULAR HGB CONC 29.8 g/dl (33.0-37.0); MEAN PLATELET VOLUME 12.9 fl (9.6-12.3); NUCLEATED RED BLOOD CELL 0.1 10*3/uL (0.0-0.0); NUCLEATED RED BLOOD CELL 0.2 % (0.0-0.0); PLATELET COUNT AUTOMATED 395 10*3/uL (130-400); RED BLOOD COUNT 3.34 10*6/uL (4.50-5.90); RED CELL DISTRI WIDTH 17.6 % (0-14.5); WHITE BLOOD COUNT 28.3 10*3/uL (4.8-10.8)
[2017-05-13 10:03] LABS: INTERNATIONAL NORM RATIO 1.3 (2.0-3.5)
[2017-05-13 10:05] LABS: ALBUMIN 1.9 gm/dl (3.1-4.5); CREATININE 3.39 mg/dL (0.70-1.30); TOTAL PROTEIN 6.2 gm/dL (6.4-8.2)
[2017-05-13 10:12] LABS: POTASSIUM 7.1 mmol/L (3.5-5.1); TROPONIN I 0.073 ng/ml (<0.045)
[2017-05-13 10:14] LABS: BILIRUBIN NEGATIVE (NEGATIVE); BLOOD 1+ (NEGATIVE); CLARITY CLOUDY (CLEAR); COLOR YELLOW (YELLOW); GLUCOSE 1+ (NEGATIVE); KETONE TRACE (NEGATIVE); LEUKO ESTERASE NEGATIVE (NEGATIVE); NITRITE NEGATIVE (NEGATIVE); SPECIFIC GRAVITY >= 1.030 (1.005-1.030); UROBILINOGEN 0.2 E.U./dl (0.2-1.0)
[2017-05-13 10:17] LABS: TOTAL CELLS COUNTED 100 #CELLS
[2017-05-13 10:18] LABS: ACANTHOCYTES MANY; HOWELL-JOLLY BODIES FEW; MICROCYTOSIS SLIGHT; SPHEROCYTES FEW
[2017-05-13 10:19] LABS: PLATELET SUFFICIENCY NORMAL (NORMAL); TARGET CELLS FEW
[2017-05-13 10:21] LABS: URINE AMPHETAMINES < 1000 (1000ng/ml); URINE BARBITURATES < 200 (200ng/ml); URINE BENZODIAZEPINES > 200 (200ng/ml); URINE CANNABINOIDS (THC) < 50 (50ng/ml); URINE COCAINE < 300 (300ng/ml); URINE METHADONE < 300 (300ng/ml); URINE OPIATES > 300 (300ng/ml)
[2017-05-13 10:22] LABS: URINE PHENCYCLIDINE < 25 (25ng/ml)
[2017-05-13 10:25] LABS: BACTERIA 1+
[2017-05-13 10:47] VITALS: BP 116/72
== END 2017-05-13 11:00 | disposition short-term general hospital (02) ==
LOC: ED 09:14
PROVIDERS: Nurse Practitioner
DX: I95.9 Hypotension, unspecified (principal); I70.90 Unspecified atherosclerosis; Z79.82 Long term (current) use of aspirin; Z79.4 Long term (current) use of insulin; Z91.012 Allergy to eggs

== ENCOUNTER → 2017-07-06 | Outpatient (CLI) | payer MEDICARE, MEDICAID | END | disposition home or self-care (01) | LOC: WOUNDCARE 00:44 | DX: E11.621 Type 2 diabetes mellitus with foot ulcer (principal); L97.521 Non-pressure chronic ulcer of other part of left foot limited to breakdown of skin; E11.40 Type 2 diabetes mellitus with diabetic neuropathy, unspecified; E78.5 Hyperlipidemia, unspecified; E11.22 Type 2 diabetes mellitus with diabetic chronic kidney disease; I13.0 Hypertensive heart and chronic kidney disease with heart failure and stage 1 through stage 4 chronic kidney disease, or unspecified chronic kidney disease; N18.9 Chronic kidney disease, unspecified; I50.9 Heart failure, unspecified; I25.2 Old myocardial infarction; I25.10 Atherosclerotic heart disease of native coronary artery without angina pectoris; M19.90 Unspecified osteoarthritis, unspecified site; G89.29 Other chronic pain; M54.9 Dorsalgia, unspecified; K21.9 Gastro-esophageal reflux disease without esophagitis; F31.9 Bipolar disorder, unspecified; F41.9 Anxiety disorder, unspecified; Z87.891 Personal history of nicotine dependence ==

== ENCOUNTER → 2017-12-24 | Outpatient (CLI) | payer MEDICARE | END | disposition home or self-care (01) | LOC: LAB 13:39 | DX: D50.0 Iron deficiency anemia secondary to blood loss (chronic) (principal) ==

== ENCOUNTER → 2018-08-16 | Outpatient (CLI) | payer MEDICARE ==
[~2018-08-16] MED LIST changes: +CEFAZOLIN1 G1 IV; +CRESTOR20 M1 PO; +METOLAZONE2.5 MG PO; +METOPROLOL SUCC25 M2 PO; +NEURONTIN300 MG PO; +NEURONTIN800 MG PO; +NORCO 10-325 T1 EACH PO; +NORCO 5-325 TA1 EACH PO; +NOVOLOG100 UNIT/1 SQ; +PROTONIX TR40 M1 PO; -VITAMIN D50000 I3 PO; +VITAMIN D50000 UNIT PO; +XARELTO10 MG PO
== END | disposition home or self-care (01) ==
LOC: WOUNDCARE 00:13
DX: E11.622 Type 2 diabetes mellitus with other skin ulcer (principal); L89.320 Pressure ulcer of left buttock, unstageable; L89.310 Pressure ulcer of right buttock, unstageable; L98.412 Non-pressure chronic ulcer of buttock with fat layer exposed; L97.812 Non-pressure chronic ulcer of other part of right lower leg with fat layer exposed; E11.22 Type 2 diabetes mellitus with diabetic chronic kidney disease; I13.0 Hypertensive heart and chronic kidney disease with heart failure and stage 1 through stage 4 chronic kidney disease, or unspecified chronic kidney disease; N18.9 Chronic kidney disease, unspecified; I50.9 Heart failure, unspecified; E11.65 Type 2 diabetes mellitus with hyperglycemia; E11.51 Type 2 diabetes mellitus with diabetic peripheral angiopathy without gangrene; E11.40 Type 2 diabetes mellitus with diabetic neuropathy, unspecified; K21.9 Gastro-esophageal reflux disease without esophagitis; I25.10 Atherosclerotic heart disease of native coronary artery without angina pectoris; I25.2 Old myocardial infarction; G89.29 Other chronic pain; M54.9 Dorsalgia, unspecified; E78.5 Hyperlipidemia, unspecified; M19.90 Unspecified osteoarthritis, unspecified site; F41.9 Anxiety disorder, unspecified; F32.9 Major depressive disorder, single episode, unspecified; Z87.891 Personal history of nicotine dependence

== ENCOUNTER → 2018-08-22 | Outpatient (CLI) | payer MEDICARE | END | disposition home or self-care (01) | LOC: WOUNDCARE 01:05 | DX: E11.622 Type 2 diabetes mellitus with other skin ulcer (principal); L89.320 Pressure ulcer of left buttock, unstageable; L89.310 Pressure ulcer of right buttock, unstageable; L98.412 Non-pressure chronic ulcer of buttock with fat layer exposed; L97.812 Non-pressure chronic ulcer of other part of right lower leg with fat layer exposed; E11.51 Type 2 diabetes mellitus with diabetic peripheral angiopathy without gangrene; E11.65 Type 2 diabetes mellitus with hyperglycemia; I25.2 Old myocardial infarction; E11.40 Type 2 diabetes mellitus with diabetic neuropathy, unspecified; G89.29 Other chronic pain; M19.90 Unspecified osteoarthritis, unspecified site; I25.10 Atherosclerotic heart disease of native coronary artery without angina pectoris; N40.0 Benign prostatic hyperplasia without lower urinary tract symptoms; E11.22 Type 2 diabetes mellitus with diabetic chronic kidney disease; I13.0 Hypertensive heart and chronic kidney disease with heart failure and stage 1 through stage 4 chronic kidney disease, or unspecified chronic kidney disease; N18.9 Chronic kidney disease, unspecified; I50.9 Heart failure, unspecified; F41.9 Anxiety disorder, unspecified; F31.9 Bipolar disorder, unspecified; Z87.891 Personal history of nicotine dependence ==

== ENCOUNTER → 2018-08-29 | Outpatient (CLI) | payer MEDICARE | END | disposition home or self-care (01) | LOC: WOUNDCARE 00:47 | DX: E11.622 Type 2 diabetes mellitus with other skin ulcer (principal); L89.320 Pressure ulcer of left buttock, unstageable; L89.310 Pressure ulcer of right buttock, unstageable; L98.412 Non-pressure chronic ulcer of buttock with fat layer exposed; L97.812 Non-pressure chronic ulcer of other part of right lower leg with fat layer exposed; E11.22 Type 2 diabetes mellitus with diabetic chronic kidney disease; I13.0 Hypertensive heart and chronic kidney disease with heart failure and stage 1 through stage 4 chronic kidney disease, or unspecified chronic kidney disease; N18.9 Chronic kidney disease, unspecified; I50.9 Heart failure, unspecified; E11.51 Type 2 diabetes mellitus with diabetic peripheral angiopathy without gangrene; E11.65 Type 2 diabetes mellitus with hyperglycemia; E11.40 Type 2 diabetes mellitus with diabetic neuropathy, unspecified; I25.2 Old myocardial infarction; I25.10 Atherosclerotic heart disease of native coronary artery without angina pectoris; G89.29 Other chronic pain; M19.90 Unspecified osteoarthritis, unspecified site; N40.0 Benign prostatic hyperplasia without lower urinary tract symptoms; F41.9 Anxiety disorder, unspecified; F31.9 Bipolar disorder, unspecified; Z87.891 Personal history of nicotine dependence ==

== ENCOUNTER → 2018-09-05 | Outpatient (CLI) | payer MEDICARE | END | disposition home or self-care (01) | LOC: WOUNDCARE 01:26 | DX: E11.622 Type 2 diabetes mellitus with other skin ulcer (principal); L89.310 Pressure ulcer of right buttock, unstageable; L89.320 Pressure ulcer of left buttock, unstageable; L98.412 Non-pressure chronic ulcer of buttock with fat layer exposed; L97.812 Non-pressure chronic ulcer of other part of right lower leg with fat layer exposed; E11.51 Type 2 diabetes mellitus with diabetic peripheral angiopathy without gangrene; E11.65 Type 2 diabetes mellitus with hyperglycemia; I25.2 Old myocardial infarction; E11.40 Type 2 diabetes mellitus with diabetic neuropathy, unspecified; G89.29 Other chronic pain; M19.90 Unspecified osteoarthritis, unspecified site; E11.22 Type 2 diabetes mellitus with diabetic chronic kidney disease; I13.0 Hypertensive heart and chronic kidney disease with heart failure and stage 1 through stage 4 chronic kidney disease, or unspecified chronic kidney disease; N18.9 Chronic kidney disease, unspecified; I50.9 Heart failure, unspecified; E78.5 Hyperlipidemia, unspecified; K21.9 Gastro-esophageal reflux disease without esophagitis; I25.10 Atherosclerotic heart disease of native coronary artery without angina pectoris; N40.0 Benign prostatic hyperplasia without lower urinary tract symptoms; F41.9 Anxiety disorder, unspecified; F32.9 Major depressive disorder, single episode, unspecified; Z87.891 Personal history of nicotine dependence ==

== ENCOUNTER 2018-10-06 14:01 | Emergency (ER) | payer MEDICARE ==
[~2018-10-06] VITALS: Ht 304.8 cm; Wt 95.3 kg
[2018-10-06 14:01] VITALS: BP 122/70
[~2018-10-06 14:01] MED LIST changes: -NEURONTIN300 MG PO; -XARELTO10 MG PO
[2018-10-06 14:53] LABS: HEMOGLOBIN 9.8 g/dl (14.0-18.0); MEAN CELL VOLUME 80.5 fl (80.0-94.0); MEAN CORPUSCULAR HGB 25.5 pg (27.0-31.0); MEAN CORPUSCULAR HGB CONC 31.6 g/dl (33.0-37.0); MEAN PLATELET VOLUME 11.1 fl (9.6-12.3); NUCLEATED RED BLOOD CELL 0.3 % (0.0-0.0); PLATELET COUNT AUTOMATED 441 10*3/uL (130-400); RED BLOOD COUNT 3.85 10*6/uL (4.50-5.90); RED CELL DISTRI WIDTH 20.1 % (0-14.5); WHITE BLOOD COUNT 14.4 10*3/uL (4.8-10.8)
[2018-10-06 15:12] LABS: BASOPHILS 1 % (0-1); TOTAL CELLS COUNTED 100 #CELLS
[2018-10-06 15:13] LABS: PLATELET SUFFICIENCY NORMAL (NORMAL); TARGET CELLS FEW
== END 2018-10-06 15:13 | disposition home or self-care (01) ==
LOC: ED 14:01
PROVIDERS: Physician Assistant
DX: K94.01 Colostomy hemorrhage (principal); M79.672 Pain in left foot; Z48.01 Encounter for change or removal of surgical wound dressing; Z91.012 Allergy to eggs; Z79.899 Other long term (current) drug therapy; Z79.82 Long term (current) use of aspirin; Z87.891 Personal history of nicotine dependence; Y83.8 Other surgical procedures as the cause of abnormal reaction of the patient, or of later complication, without mention of misadventure at the time of the procedure; Y92.89 Other specified places as the place of occurrence of the external cause